=== PATIENT | female | born 1955 | race Two or more races ===

== ENCOUNTER 2024-05-01 08:23 | Emergency (ER) | payer OTHER ==
[~2024-05-01] VITALS: Ht 160 cm; Wt 92.3 kg
--- NOTE | 2024-05-01 08:39 | ED.PDOC ---
SOB-HPI HPI Comments A 68 YEAR OLD FEMALE PRESENTS TO THE ED WITH COMPLAINT OF COUGH. PATIENT STATES SHE HAS BEEN EXPERIENCING A COUGH, CONGESTION, LEFT EAR PAIN, SORE THROAT, AND CHEST TIGHTNESS FOR THE PAST 9 DAYS. PATIENT REPORTS HER SYMPTOMS ARE WORSE AT NIGHT. PATIENT DENIES FEVER, CHILLS, SHORTNESS OF BREATH, CHEST PAIN, ABDOMINAL PAIN, NAUSEA, VOMITING, HEADACHE, OR OTHER COMPLAINTS. NO OTHER SYMPTOMS OR MODIFYING FACTORS AT THIS TIME. PATIENT IS ALERT, ORIENTED X 4, AND HAS STEADY GAIT. Chief Complaint: Flu like Time Seen by MD: 08:31 Reviewed notes: Nurses Notes, Medications, Allergies Information Source: Patient Mode of Arrival: Ambulatory Severity: Moderate Timing: Days Duration: Since onset, Days Context: Spontaneous Onset PE Risk Factors: None History of: None Prehospital treatment: None Modifying Factors: Nothing Associated Signs and Symptoms: Cough, Nasal Congestion, Sore Throat If cough with SOB: Productive Past Medical History PAST MEDICAL HISTORY: DM, HTN Surgical History: Denies all surgeries SOLVENT PROCESS EXTRACTOR OPERATOR History: No Pertinent SOLVENT PROCESS EXTRACTOR OPERATOR History Family History Family History: Reviewed,noncontributory to illness Social History Smoker: Non-Smoker Alcohol: Denies ETOH Use Drugs: Denies Drug Use Lives In: Home Constitutional: denies: chills, diaphoresis, fatigue, fever, malaise, sweats, weakness, others EENTM: reports: ear pain, nose congestion, throat pain, throat swelling; denies: blurred vision, double vision, ear bleeding, ear discharge, ear drainage, ear ringing, eye pain, eye redness, hearing loss, mouth pain, mouth swelling, nasal discharge, nose bleeding, nose pain, photophobia, tearing, voice changes, others Respiratory: reports: cough, wheezing, others (CHEST TIGHTNESS); denies: hemoptysis, orthopnea, SOB at rest, shortness of breath, SOB with excertion, stridor Cardiovascular: denies: chest pain, dizzy spells, diaphoresis, Dyspnea on exertion, edema, irregular heart beat, left arm pain, lightheadedness, palpitations, PND, syncope, others Gastrointestinal: denies: abdomen distended, abdominal pain, blood streaked bowels, constipated, diarrhea, dysphagia, difficulty swallowing, hematemesis, melena, nausea, poor appetite, poor fluid intake, rectal bleeding, rectal pain, vomiting, others Genitourinary: denies: abnormal vagina bleeding, burning, dyspareunia, dysuria, flank pain, frequency, hematuria, incontinence, pain, , vagina discharge, urgency, others Neurological: denies: dizziness, fainting, headache, left sided numbness, left sided weakness, numbness, paresthesia, pre-existing deficit, right sided numbness, right sided weakness, seizure, speech problems, tingling, tremors, weakness, others Musculoskeletal: denies: back pain, gout, joint pain, joint swelling, muscle pain, muscle stiffness, neck pain, others Integumetry: denies: bruises, change in color, change in hair/nails, dryness, laceration, lesions, lumps, rash, wounds, others Allergic/Immunocompromised: denies: Difficulty Healing, Frequent Infections, Hives, Itching, others Hematologic/Lymphatic: denies: anemia, blood clots, easy bleeding, easy bruising, swollen glands, others Endocrine: denies: excessive hunger, excessive sweating, excessive thirst, excessive urination, flushing, intolerance to cold, intolerance to heat, unexplained weight gain, unexplained weight loss, others Psychiatric: denies: anxiety, bipolar disorder, depression, hopeless, panic disorder, schizophrenia, sleepless, suicidal, others All Other Systems: Reviewed and Negative Physical Exam General Appearance: No Apparent Distress, Normal HEENT: PERRL/EOMI, Pharyngeal Erythema (TONSILLAR SWELLING, NO EXUDATES. ), TM Abnormal (L) (ERYTHEMA AND DULL OF LEFT TM, NO DRAINAGE AND BLOOD CLOTS. ) Neck: Full Range of Motion, Non-Tender, Normal, Normal Inspection Respiratory: Chest Non-Tender, Expiration, No Accessory Muscle Use, No Respiratory Distress, Rhonchi, Wheezing (MILD WHEEZING) Cardiovascular: No Edema, No JVD, No Murmur, No Gallop, Normal Peripheral Pulses, Regular Rate/Rhythm Breast Exam: Deferred Gastrointestinal: No Organomegaly, Non Tender, No Pulsatile Mass, Normal Bowel Sounds, Soft Genitalia: Deferred Pelvic: Deferred Rectal: Deferred Extremities: No calf tenderness, Normal capillary refill, Normal inspection, Normal range of motion, Non-tender, No pedal edema Musculoskeletal : Apperance: Normal Neurologic: Alert, floor clerk II-XII nml as Tested, No Motor Deficits, Normal Affect, Normal Mood, No Sensory Deficits Cerebellar Function: Normal Reflexes: Normal Skin: Dry, Normal Color, Warm Peripheral Pulses: 2+ carotid (R), 2+ carotid (L) Lymphatic: No Adenopathy Was a procedure done? Was a procedure done?: No Differential Dx Differential Diagnosis: Bronchitis, Pneumonia, Sinusitis, Allergic Rhinitis, Otitis Media, Pharyngitis, URI X-Ray, Labs, Meds, VS Vital Signs Date Time Temp Pulse Resp B/P (MAP) Pulse Ox O2 Delivery O2 Flow Rate FiO2 05/01/24 08:58 20 96 Room Air* 0 21 05/01/24 08:52 95 22 96 Room Air 05/01/24 08:52 98.2 95 22 128/86 (100) 96 98.2 05/01/24 08:33 98.2 97 22 185/111 (135) 98 Current Medications Medications (Trade) Dose Ordered Sig/Ellis Route Start Time Stop Time Status Last Admin Ceftriaxone Sodium (Rocephin) 1,000 mg ONCE ONCE IM 05/01/24 08:45 05/01/24 08:46 DC 05/01/24 09:21 Methylprednisolone Sodium Succinate (Solu Medrol) 125 mg ONCE ONCE IM 05/01/24 08:45 05/01/24 08:46 DC 05/01/24 09:21 Albuterol (Ventolin Medneb) 2.5 mg ONCE ONCE NEB 05/01/24 08:45 05/01/24 08:46 DC 05/01/24 08:58 Ipratropium [place] (Atrovent Medneb) 0.5 mg ONCE ONCE NEB 05/01/24 08:45 05/01/24 08:46 DC 05/01/24 08:58 EXAM: XR Chest, 2 Views CLINICAL INDICATION: COUGH TECHNIQUE: Frontal and lateral views of the chest. COMPARISON: None FINDINGS: LUNGS AND PLEURAL SPACES: Unremarkable. No consolidation. No pneumothorax. HEART: Unremarkable. No cardiomegaly. MEDIASTINUM: Unremarkable. Normal mediastinal contour. BONES/JOINTS: Unremarkable. No acute fracture. OTHER FINDINGS: . . . IMPRESSION: No acute cardiopulmonary process. HS:Y ATED BY: AMISH EDWARDS MD DICTATED DATE/TIME: 05/01/24919 SIGNED BY: AMISH EDWARDS MD SIGNED DATE/TIME: 11/23/24 0920 CC: X-Ray, Labs, Meds, VS Comment TREATMENT: ROCEPHIN 1 G IM, SOLU-MEDROL 125 MG IM, DUONEB 3 MG INHL BASED ON MY CLINICAL EXAM FINDINGS, THE FACT THAT THE PATIENT'S CHEST X-RAY IS NORMAL PER THE RADIOLOGIST'S INTERPRETATION, AND SINCE THE PATIENT REPORTED FEELING MUCH BETTER AFTER RECEIVING TREATMENT, I HAVE DETERMINED THE PATIENT IS SAFE TO DISCHARGE AT THIS TIME. PATIENT WILL BE PRESCRIBED AZITHROMYCIN, AN ALBUTEROL INHALER, AND PHENERGAN DM AND I HAVE INSTRUCTED HER TO FOLLOW UP WITH HER PCP IN 1-2 DAYS. Images Reviewed?: Images reviewed and evaluated by me Time of 1ST Reevaluation: 09:40 Reevaluation 1ST: Improved Patient Education/Counseling: Diagnosis, Treatment, Need For Follow Up Family Education/Counseling: Diagnosis, Treatment, Need For Follow Up Medical Screening: No EMC Exist At This Time Departure 1 Departure Time of Disposition: 09:40 Impression: Primary Impression: Acute bronchitis with bronchospasm Additional Impression: Acute tonsillitis Qualified Codes: J03.90 - Acute tonsillitis, unspecified Disposition: HOME / SELF CARE / HOMELESS Condition: Stable Additional Instructions: FOLLOW-UP WITH PCP IN 1 TO 2 DAYS. TAKE MEDICATIONS PRESCRIBED. RETURN TO ED FOR ANY NEW OR WORSENING SYMPTOMS. e-Prescriptions Albuterol Sulfate (Albuterol Sulfate Hfa) 108 Mcg/Act Aer 108 MCG IN TID, #120 AER Prov: DINORA COLE 05/01/24 Promethazine-Dm (Promethazine Dm 6.25-15 mg/5Ml) 1 Mikki Mikki 5 ML PO TID, #180 ML Prov: DINORA COLE 05/01/24 Azithromycin (Azithromycin) 500 Mg Tab 1 TAB PO DAILY, #5 TAB Prov: DINORA COLE 05/01/24 Discharged With: Self Critical Care Note Critical Care Time?: No Stability Stability form required: No Heart Score Heart Score: Heart Score Response (Comments) Value History N/A 0 EKG N/A 0 Age N/A 0 Risk Factors N/A 0 Troponin N/A 0 Total 0 I personally scribed for DINORA COLE ([email or web address]) on 05/01/24 at 09:21. Electronically submitted by Jose Alberto Hoffman ([email or web address]). I personally scribed for DINORA COLE ([email or web address]) on 05/01/24 at 09:23. Electronically submitted by Jose Alberto Hoffman ([email or web address]). DINORA COLE May 01, 2024 08:39
[2024-05-01 08:52] VITALS: BP 128/86; PULSE 95; TEMP 98.2
[2024-05-01 08:58] VITALS: RESP 20; O2SAT 96
[2024-05-01] MEDS: IPRATROPIUM BROM 0.5 MG/2.5ML INH SOL NEB ONE (08:58)
[2024-05-01] MEDS: ALBUTEROL SULF 2.5 MG/0.5ML(0.5%) NEB SOLN NEB ONE (08:58)
[2024-05-01] MEDS: cefTRIAXone SOD 1,000 MG VL IM ONE (09:21)
[2024-05-01] MEDS: methylPREDNISolone SOD SUCC 125 MG/2 ML VL IM ONE (09:21)
--- NOTE | 2024-05-01 09:22 | DVH ---
EXAM: XR Chest, 2 Views CLINICAL INDICATION: COUGH TECHNIQUE: Frontal and lateral views of the chest. COMPARISON: None FINDINGS: LUNGS AND PLEURAL SPACES: Unremarkable. No consolidation. No pneumothorax. HEART: Unremarkable. No cardiomegaly. MEDIASTINUM: Unremarkable. Normal mediastinal contour. BONES/JOINTS: Unremarkable. No acute fracture. OTHER FINDINGS: . . . IMPRESSION: No acute cardiopulmonary process. HS:Y
[2024-05-01] MEDS ORDERED: PROM1SOL4 PO (09:23)
[2024-05-01] MEDS ORDERED: ALBU108A5 IN (09:23)
[2024-05-01] MEDS ORDERED: AZIT500T66 PO (09:23)
== END 2024-05-01 10:01 | disposition home or self-care (01) ==
LOC: ER 08:23
DX: J20.9 Acute bronchitis, unspecified (principal); J03.90 Acute tonsillitis, unspecified; E11.9 Type 2 diabetes mellitus without complications; I10 Essential (primary) hypertension
CPT/HCPCS: 71046; 94640; 96372; 99284; J0696; J2919

== ENCOUNTER 2024-07-03 06:40 | Inpatient (IN) | payer OTHER ==
[~2024-07-03] VITALS: Ht 160 cm; Wt 92.5 kg
[~2024-07-03 06:40] MED LIST: ALBU108A5 IN; AZIT500T66 PO; PROM1SOL4 PO
--- NOTE | 2024-07-03 07:10 | ED.PDOC ---
GI ASSESSMENT HPI Comments 68-year-old female brought in by presents with a chief complaint of diarrhea, nausea, vomiting times onset last night. Beam consistently using the restroom to go diarrhea since late last night and has yet to stop. Patient states that she is unable to keep solids or liquids down without having emesis episode. Patient denies any history of C. Diff in the past. Patient is tachycardic upon arrival with a rate of 125. Chief Complaint: Nausea/Vomiting Time Seen by MD: 07:06 Reviewed Notes: Medications, Allergies Home Meds Active Scripts Albuterol Sulfate (Albuterol Sulfate Hfa) 108 Mcg/Act Aer, 108 MCG IN TID, #120 AER Prov:DINORA COLE 05/01/24 Promethazine-Dm (Promethazine Dm 6.25-15 mg/5Ml) 1 Mikki Mikki, 5 ML PO TID, #180 ML Prov:DINORA COLE 05/01/24 Azithromycin (Azithromycin) 500 Mg Tab, 1 TAB PO DAILY, #5 TAB Prov:DINORA COLE 05/01/24 Information Source: Patient Mode of Arrival: EMS Timing: Hours Duration: Since onset Prehospital treatment: None Quality: Aching Vomitus: Food Particles Stool: Loose, Watery Severity: Moderate Recent: None Pain Location: Diffuse Past Medical History PAST MEDICAL HISTORY: DM, HTN Surgical History: Denies all surgeries FIRE COORDINATOR History: No Pertinent FIRE COORDINATOR History Family History Family History: Reviewed,noncontributory to illness Social History Smoker: Non-Smoker Alcohol: Denies ETOH Use Drugs: Denies Drug Use Lives In: Home Constitutional: denies: chills, diaphoresis, fatigue, fever, malaise, sweats, weakness, others EENTM: denies: blurred vision, double vision, ear bleeding, ear discharge, ear drainage, ear pain, ear ringing, eye pain, eye redness, hearing loss, mouth pain, mouth swelling, nasal discharge, nose bleeding, nose congestion, nose pain, photophobia, tearing, throat pain, throat swelling, voice changes, others Respiratory: denies: cough, hemoptysis, orthopnea, SOB at rest, shortness of breath, SOB with excertion, stridor, wheezing, others Cardiovascular: denies: chest pain, dizzy spells, diaphoresis, Dyspnea on exertion, edema, irregular heart beat, left arm pain, lightheadedness, palpitations, PND, syncope, others Gastrointestinal: reports: diarrhea, nausea, vomiting; denies: abdomen distended, abdominal pain, blood streaked bowels, constipated, dysphagia, diffi culty swallowing, hematemesis, melena, poor appetite, poor fluid intake, rectal bleeding, rectal pain, others Genitourinary: denies: abnormal vagina bleeding, burning, dyspareunia, dysuria, flank pain, frequency, hematuria, incontinence, pain, , vagina discharge, urgency, others Neurological: denies: dizziness, fainting, headache, left sided numbness, left sided weakness, numbness, paresthesia, pre-existing deficit, right sided numbness, right sided weakness, seizure, speech problems, tingling, tremors, weakness, others Musculoskeletal: denies: back pain, gout, joint pain, joint swelling, muscle pain, muscle stiffness, neck pain, others Integumetry: denies: bruises, change in color, change in hair/nails, dryness, laceration, lesions, lumps, rash, wounds, others Allergic/Immunocompromised: denies: Difficulty Healing, Frequent Infections, Hives, Itching, others Hematologic/Lymphatic: denies: anemia, blood clots, easy bleeding, easy bruising, swollen glands, others Endocrine: denies: excessive hunger, excessive sweating, excessive thirst, excessive urination, flushing, intolerance to cold, intolerance to heat, unexplained weight gain, unexplained weight loss, others Psychiatric: denies: anxiety, bipolar disorder, depression, hopeless, panic disorder, schizophrenia, sleepless, suicidal, others All Other Systems: Reviewed and Negative Physical Exam General Appearance: Moderate Distress, Obese HEENT: Normal ENT Inspection, Pharynx Normal, TMs Normal Neck: Full Range of Motion, Non-Tender, Normal, Normal Inspection Respiratory: Chest Non-Tender, Lungs Clear, No Accessory Muscle Use, No Respiratory Distress, Normal Breath Sounds Cardiovascular: No Edema, No JVD, No Murmur, No Gallop, Normal Peripheral Pulses, Tachycardia Breast Exam: Deferred Gastrointestinal: No Organomegaly, Non Tender, No Pulsatile Mass, Normal Bowel Sounds, Soft Genitalia: Deferred Pelvic: Deferred Rectal: Deferred Extremities: No calf tenderness, Normal capillary refill, Normal inspection, Normal range of motion, Non-tender, No pedal edema Musculoskeletal : Apperance: Normal Neurologic: Alert, employment law attorney II-XII nml as Tested, No Motor Deficits, Normal Affect, Normal Mood, No Sensory Deficits Cerebellar Function: Normal Reflexes: Normal Skin: Dry, Normal Color, Warm Lymphatic: No Adenopathy Was a procedure done? Was a procedure done?: No GI differential Dx Differential Diagnosis: Gastroenteritis, Dehydration, Hypovolemia Other Differential Diagnosis C diff, electrolyte disturbance, dehydration hypovolemia, gastroenteritis X-Ray, Labs, Meds, VS Vital Signs Date Time Temp Pulse Resp B/P (MAP) Pulse Ox O2 Delivery O2 Flow Rate FiO2 07/03/24 08:47 98.5 103 16 119/85 (96) 96 98.5 07/03/24 08:01 Room Air* 0 21 07/03/24 06:48 98.6 124 18 167/109 (128) 97 Lab Test 07/03/24 08:12 07/03/24 07:43 Range/Units Urine Color Yellow Yellow Urine Clarity Clear Clear Urine pH 5.5 5.0-9.0 Urine Specific [place] 1.027 1.001-1.035 Urine Protein Trace H Negative Urine Ketones Negative Negative Urine Blood Negative Negative /uL Urine Nitrite Negative Negative Urine Bilirubin Negative Negative Urine Urobilinogen Normal Negative mg/dL Urine Leukocyte Esterase Negative Negative /uL Urine RBC 1 0 - 4 /hpf Urine Microscopic WBC 1 0-5 /HPF Urine Squamous Epithelial Cells Few <5 /hpf Urine Bacteria None seen None Seen /hpf Urine Mucus Few None Seen Urine Glucose 1+ H Normal mg/dL White Blood Count 10.1 4.4-10.8 10^3/uL Red Blood Count 5.98 H 4.0-5.20 10^6/uL Hemoglobin 13.7 12.2-16.2 g/dL Hematocrit 42.4 36.0-46.0 % Mean Corpuscular Volume 70.9 L 80.0-100.0 fL Mean Corpuscular Hemoglobin 22.9 L 28.0-32.0 pg Mean Corpuscular Hemoglobin Concent 32.2 32.0-36.0 g/dL Red Cell Distribution Width 16.5 H 11.8-14.3 % Platelet Count 255 140-450 10^3/uL Mean Platelet Volume 10.5 6.9-10.8 fL Neutrophils (%) (Auto) 88.2 H 37.0-80.0 % Lymphocytes (%) (Auto) 6.3 L 10.0-50.0 % Monocytes (%) (Auto) 5.0 0.0-12.0 % Eosinophils (%) (Auto) 0.1 0.0-7.0 % Basophils (%) (Auto) 0.4 0.0-2.0 % Neutrophils # (Auto) 8.9 H 1.6-8.6 10 ^3/uL Lymphocytes # (Auto) 0.6 0.4-5.4 10 ^3/uL Monocytes # (Auto) 0.5 0-1.3 10 ^3/uL Eosinophils # (Auto) 0 0-0.8 10 ^3/uL Basophils # (Auto) 0 0-0.2 10 ^3/uL Nucleated Red Blood Cells 0.1 % Sodium Level 137 136-145 mmol/L Potassium Level 3.6 3.5-5.1 mmol/L Chloride Level 104 98-107 mmol/L Carbon Dioxide Level 22 20-31 mmol/L Anion Gap 11 5-15 Blood Urea Nitrogen 15 9-23 mg/dL Creatinine 0.90 0.550-1.02 mg/dL Glomerular Filtration Rate Calc 69 >90 mL/min BUN/Creatinine Ratio 16.7 10.0-20.0 Serum Glucose 215 H 74-106 mg/dL Calcium Level 9.7 8.7-10.4 mg/dL Total Bilirubin 0.6 0.2-1.0 mg/dL Aspartate Amino Transferase (AST) 24 13-40 U/L Alanine Aminotransferase (ALT) 42 H 7-40 U/L Alkaline Phosphatase 107 46-116 U/L Total Protein 7.6 5.7-8.2 g/dL Albumin 5.1 H 3.2-4.8 g/dL Current Medications Medications (Trade) Dose Ordered Sig/Ellis Route Start Time Stop Time Status Last Admin Sodium Chloride 1,000 ml @ 1,000 mls/hr Q1H ONCE IV 07/03/24 07:15 07/03/24 08:14 DC 07/03/24 07:53 Ondansetron HCl (Zofran) 4 mg ONCE ONCE IV 07/03/24 07:15 07/03/24 07:16 DC 07/03/24 07:53 68-year-old female presents here with vomiting and diarrhea. She states she has been having profuse watery diarrhea. She was found to be tachycardic in the 130s upon her initial arrival. I have written for blood work IV fluids. And some nausea medicine. CBC has returned and is within normal limits. CMP is also within normal limits except for mildly high glucose at 215. Although her heart rate has improved with IV fluids, she continues to have profuse watery diarrhea and unable to tolerate any p.o.. She does not live with any family I a m concerned that she will become extremely dehydrated at home. At this time hospitalist team has been consulted for admission. I have ordered a CT scan of the abdomen pelvis and additional medications for her. Time of 1ST Reevaluation: 07:36 Reevaluation 1ST: Unchanged Time of 2ND Reevaluation: 10:00 Reevaluation 2ND: Unchanged Patient Education/Counseling: Diagnosis, Treatment, Prognosis Family Education/Counseling: Diagnosis, Treatment, Prognosis Departure 1 Departure Time of Disposition: 10:15 Impression: Primary Impression: Gastroenteritis Additional Impression: Dehydration Disposition: ADMITTED INPATIENT Admit to: [facility] Condition: Guarded Discharged With: Self Critical Care Note Critical Care Time?: Yes Critical care comment: 34 minutes critical care time. Given patient's high heart rate, I was called triage to evaluate the patient. Patient was extremely dehydrated. Patient was given IV fluids with improvement. Time spent speaking to nursing staff, patient evaluating the patient, multiple re-evaluations, reviewing lab results, speaking to hospitalist team. Stability Stability form required: No Heart Score Heart Score: Heart Score Response (Comments) Value History N/A 0 EKG N/A 0 Age N/A 0 Risk Factors N/A 0 Troponin N/A 0 Total 0 I personally scribed for SANDEEP BRENNER MD ([email or web address]) on 07/03/24 at 07:10. Electronically submitted by Irving Moore ([email or web address]). I personally scribed for SANDEEP BRENNER MD ([email or web address]) on 07/03/24 at 07:20. Electronically submitted by Irving Moore ([email or web address]). SANDEEP BRENNER MD Jul 03, 2024 07:10
[2024-07-03] MEDS: SODIUM CHLORIDE 0.9% 1,000 ML IV ONE (07:53)
[2024-07-03] MEDS: ONDANSETRON HCL 4 MG/2 ML VIAL IV ONE ×2 (07:53→11:11)
[2024-07-03 08:19] LABS: Basophils # (auto) 0 10 ^3/uL (0-0.2); Eosinophils # (auto) 0 10 ^3/uL (0-0.8); Hemoglobin 13.7 g/dL (12.2-16.2); Mean Corpuscular Hemoglobin 22.9 pg (28.0-32.0); Mean Corpuscular Hgb Conc. 32.2 g/dL (32.0-36.0); Monocytes # (auto) 0.5 10 ^3/uL (0-1.3); Red Cell Distribution Width 16.5 % (11.8-14.3)
[2024-07-03 08:21] LABS: Basophils % (auto) 0.4 % (0.0-2.0); Eosinophils % (auto) 0.1 % (0.0-7.0); Hematocrit 42.4 % (36.0-46.0); Lymphocytes # (auto) 0.6 10 ^3/uL (0.4-5.4); Lymphocytes % (auto) 6.3 % (10.0-50.0); Mean Corpuscular Volume 70.9 fL (80.0-100.0); Neutrophils # (auto) 8.9 10 ^3/uL (1.6-8.6); Neutrophils % (auto) 88.2 % (37.0-80.0); Nucleated Red Blood Cells % 0.1 %; Platelet Count (auto) 255 10^3/uL (140-450); Red Blood Cells 5.98 10^6/uL (4.0-5.20); White Blood Cell 10.1 10^3/uL (4.4-10.8)
[2024-07-03 08:32] LABS: Alkaline Phosphatase 107 U/L (46-116); Anion Gap 11 (5-15); Aspartate Aminotransferase 24 U/L (13-40); BUN/Creatinine Ratio 16.7 (10.0-20.0); Bilirubin, Total 0.6 mg/dL (0.2-1.0); Blood Urea Nitrogen 15 mg/dL (9-23); Calcium 9.7 mg/dL (8.7-10.4); Carbon Dioxide 22 mmol/L (20-31); Chloride 104 mmol/L (98-107); Potassium 3.6 mmol/L (3.5-5.1); Sodium 137 mmol/L (136-145); Total Protein 7.6 g/dL (5.7-8.2)
[2024-07-03 08:36] LABS: Alanine Aminotransferase 42 U/L (7-40); Albumin 5.1 g/dL (3.2-4.8); Glucose 215 mg/dL (74-106)
[2024-07-03 09:40] LABS: Urine Bacteria None Seen /hpf (None Seen)
[2024-07-03 09:58] LABS: Urine Blood Negative /uL (Negative); Urine Clarity Clear (Clear); Urine Color Yellow (Yellow); Urine Mucus FEW (None Seen); Urine Protein, UAD TRACE (Negative); Urine Specific Gravity 1.027 (1.001-1.035); Urine Squamous Epithelial Cell FEW /hpf (<5); Urine Urobilinogen Normal (Negative); Urine WBC 1 /HPF (0-5); Urine pH 5.5 (5.0-9.0)
[2024-07-03] MEDS: MORPHINE SULFATE INJ 2 MG/ml SYRG IV ONE (11:11)
[2024-07-03] MEDS ORDERED: DEXTROSE (50%) 50ML SYRG IV PRN ×2 (11:30→12:45)
--- NOTE | 2024-07-03 11:44 | DVH ---
Exam: CT CT AB PEL WO CON-NO ORAL OR IV History: abd pain Comparison Study: None Technique: Multidetector spiral CT of the abdomen was performed from lung bases to pubic symphysis. Imaging was performed without IV contrast. Axial, coronal and sagittal multiplanar reformats were ob tained from the axial data set by the technologist. Radiation dose : 1. Abdomen/Pelvis: CTDIvol 23 mGy, DLP 1149.95 mGy*cm. Findings: Evaluation of solid organs is limited due to lack of intravenous contrast use. Lung Bases: No acute or significant lung base finding. Normal heart size. No pleural or pericardial effusion. Liver: At the infiltration of the liver moderate and degree. Gallbladder and biliary Tree: Unremarkable Spleen: Unremarkable Pancreas: The pancreas is grossly normal in appearance. Adrenal Glands: Unremarkable Kidneys: Kidneys are grossly normal without calculi or hydronephrosis. Bladder: Grossly unremarkable for degree of distention. Bowel: The stomach is grossly normal in appearance. Small bowel and colon are normal in caliber and d istribution. Normal appendix. Moderate sigmoid diverticulosis without diverticulitis. Multiple non d istended fluid filled loops of small bowel. Ascites: Absent Lymphadenopathy: No mesenteric, retroperitoneal or periportal lymphadenopathy. Abdominal wall and Mesentery: Unremarkable. Vasculature: The visualized abdominal aorta is normal in size and caliber. Evaluation of abdominal a nd pelvic vessels is limited due to lack of intravenous contrast. Pelvic Organs: Unremarkable Musculoskeletal: No aggressive focal bony lesions, acute fractures or dislocation. IMPRESSION: 1. No acute abdominal or pelvic findings. 2. Moderate fatty infiltration of the liver. 3. Normal appendix 4. Multiple non distended fluid filled loops of small bowel without bowel obstruction 5. Moderate sigmoid and descending colonic diverticulosis Radiation optimization: All CT scans at this facility use at least one of these dose optimization esa hniques: Automated exposure control mA and/or kV adjustment per patient size (includes targeted exams where dose is matched to clinical indication) or iterative reconstruction.
[2024-07-03] MEDS ORDERED: ACETAMINOPHEN 325 MG TAB PO PRN (12:45)
--- NOTE | 2024-07-03 12:47 | DVHHP2 ---
History of Present Illness Reason for Visit: Abdominal pain History of Present Illness Arlene Sheridan is a 68-year-old female with past medical history of hypertension, diabetes, and who presents to the ED with abdominal pain, nausea, vomiting, diarrhea, and headache x1 day. Patient denies any recent ingestion of spoiled food or recent sick contacts or recent illnesses. Patient reports the pain as pressure-like constant and 5/10. Patient denies any fevers, chills, lightheadedness, weakness, dizziness, chest pain, shortness of breath, or urinary symptoms. Cardiovascular: HTN Endocrine: Diabetes Past Surgical History: Family History: None Smoke: No ALCOHOL: none Drugs: None Lives: Alone Domestic Violence: Neg Review of Systems Constitutional: Yes: Other (Headache); No: Fever, Chills, Sweats, Weakness, Malaise Eyes: No: Pain, Vision change, Conjunctivae inflammation, Eyelid inflammation, Other, Redness ENT: No: Ear pain, Ear discharge, Nose pain, Nose discharge, Nose congestion, Mouth pain, Mouth swelling, Throat pain, Throat swelling, Other Respiratory: No: Cough, Dry, Shortness of breath, SOB with excertion, Wheezing, Hemoptysis, Pleuritic Pain, Sputum, Wheezing, Other Cardiovascular: No: Chest Pain, Palpitations, Orthopnea, Paroxysmal Noc. Dyspnea, Edema, Lt Headedness, Other Gastrointestinal: Nausea, Vomiting, Abdominal Pain, Diarrhea; No: Constipation, Melena, Hematochezia, Other Genitourinary: No Dysuria, No Frequency, No Incontinence, No Hematuria, No Retention, No Other Musculoskeletal: No: other, neck pain, shoulder pain, arm pain, back pain, hand pain, leg pain, foot pain Skin: No: Rash, Lesions, Jaundice, Bruising, Other Neurological: No: Weakness, Numbness, Incoordination, Change in speech, Confusion, Seizures, Other Allergies: Coded Allergies: NO KNOWN ALLERGIES (Unverified , 07/03/24) Medications Current Medications Medications Dose Ordered Sig/Ellis Route Start Time Stop Time Status Last Admin Dose Admin Diagnostic Test (Pha) 1 strip ACHS 07/03/24 11:30 Insulin Human Regular ACHS SC 07/03/24 11:30 Dextrose 50 ml UD PRN IV 07/03/24 11:30 Exam Vital Signs Vital Signs Date Time Temp Pulse Resp B/P (MAP) Pulse Ox O2 Delivery O2 Flow Rate FiO2 07/03/24 11:11 93 16 146/87 07/03/24 11:05 96 07/03/24 08:47 98.5 98.5 07/03/24 08:01 Room Air* 0 21 General Appearance: Alert, Oriented X3, Cooperative, No acute distress HEENT: Atraumatic, PERRLA Respiratory: Clear to auscultation, Normal air movement Cardiovascular: Normal S1, Normal S2, No murmurs Abdominal: Soft Extremities: No clubbing, No cyanosis, No edema, Normal pulses, No tenderness/swelling Skin: No rashes, No breakdown, No significant lesion Neuro: Normal gait, Normal speech, Strength at 5/5 X4 ext, Normal tone, Sensation intact Psych/Mental Status: Mental status NL, Mood NL Labs/Xrays Labs Test 07/03/24 08:12 07/03/24 07:43 Range/Units Urine Color Yellow Yellow Urine Clarity Clear Clear Urine pH 5.5 5.0-9.0 Urine Specific [place] 1.027 1.001-1.035 Urine Protein Trace H Negative Urine Ketones Negative Negative Urine Blood Negative Negative /uL Urine Nitrite Negative Negative Urine Bilirubin Negative Negative Urine Urobilinogen Normal Negative mg/dL Urine Leukocyte Esterase Negative Negative /uL Urine RBC 1 0 - 4 /hpf Urine Microscopic WBC 1 0-5 /HPF Urine Squamous Epithelial Cells Few <5 /hpf Urine Bacteria None seen None Seen /hpf Urine Mucus Few None Seen Urine Glucose 1+ H Normal mg/dL White Blood Count 10.1 4.4-10.8 10^3/uL Red Blood Count 5.98 H 4.0-5.20 10^6/uL Hemoglobin 13.7 12.2-16.2 g/dL Hematocrit 42.4 36.0-46.0 % Mean Corpuscular Volume 70.9 L 80.0-100.0 fL Mean Corpuscular Hemoglobin 22.9 L 28.0-32.0 pg Mean Corpuscular Hemoglobin Concent 32.2 32.0-36.0 g/dL Red Cell Distribution Width 16.5 H 11.8-14.3 % Platelet Count 255 140-450 10^3/uL Mean Platelet Volume 10.5 6.9-10.8 fL Neutrophils (%) (Auto) 88.2 H 37.0-80.0 % Lymphocytes (%) (Auto) 6.3 L 10.0-50.0 % Monocytes (%) (Auto) 5.0 0.0-12.0 % Eosinophils (%) (Auto) 0.1 0.0-7.0 % Basophils (%) (Auto) 0.4 0.0-2.0 % Neutrophils # (Auto) 8.9 H 1.6-8.6 10 ^3/uL Lymphocytes # (Auto) 0.6 0.4-5.4 10 ^3/uL Monocytes # (Auto) 0.5 0-1.3 10 ^3/uL Eosinophils # (Auto) 0 0-0.8 10 ^3/uL Basophils # (Auto) 0 0-0.2 10 ^3/uL Nucleated Red Blood Cells 0.1 % Sodium Level 137 136-145 mmol/L Potassium Level 3.6 3.5-5.1 mmol/L Chloride Level 104 98-107 mmol/L Carbon Dioxide Level 22 20-31 mmol/L Anion Gap 11 5-15 Blood Urea Nitrogen 15 9-23 mg/dL Creatinine 0.90 0.550-1.02 mg/dL Glomerular Filtration Rate Calc 69 >90 mL/min BUN/Creatinine Ratio 16.7 10.0-20.0 Serum Glucose 215 H 74-106 mg/dL Hemoglobin A1c 8.0 H <5.7 % A1C Calcium Level 9.7 8.7-10.4 mg/dL Total Bilirubin 0.6 0.2-1.0 mg/dL Aspartate Amino Transferase (AST) 24 13-40 U/L Alanine Aminotransferase (ALT) 42 H 7-40 U/L Alkaline Phosphatase 107 46-116 U/L Total Protein 7.6 5.7-8.2 g/dL Albumin 5.1 H 3.2-4.8 g/dL Exam: CT CT AB PEL WO CON-NO ORAL OR IV History: abd pain Comparison Study: None Technique: Multidetector spiral CT of the abdomen was performed from lung bases to pubic symphysis. Imaging was performed without IV contrast. Axial, coronal and sagittal multiplanar reformats were obtained from the axial data set by the technologist. Radiation dose : 1. Abdomen/Pelvis: CTDIvol 23 mGy, DLP 1149.95 mGy*cm. Findings: Evaluation of solid organs is limited due to lack of intravenous contrast use. Lung Bases: No acute or significant lung base finding. Normal heart size. No pleural or pericardial effusion. Liver: At the infiltration of the liver moderate and degree. Gallbladder and biliary Tree: Unremarkable Spleen: Unremarkable Pancreas: The pancreas is grossly normal in appearance. Adrenal Glands: Unremarkable Kidneys: Kidneys are grossly normal without calculi or hydronephrosis. Bladder: Grossly unremarkable for degree of distention. Bowel: The stomach is grossly normal in appearance. Small bowel and colon are normal in caliber and distribution. Normal appendix. Moderate sigmoid diverticulosis without diverticulitis. Multiple non distended fluid filled loops of small bowel. Ascites: Absent Lymphadenopathy: No mesenteric, retroperitoneal or periportal lymphadenopathy. Abdominal wall and Mesentery: Unremarkable. Vasculature: The visualized abdominal aorta is normal in size and caliber. Evaluation of abdominal and pelvic vessels is limited due to lack of intravenous contrast. Pelvic Organs: Unremarkable Musculoskeletal: No aggressive focal bony lesions, acute fractures or dislocation. IMPRESSION: 1. No acute abdominal or pelvic findings. 2. Moderate fatty infiltration of the liver. 3. Normal appendix 4. Multiple non distended fluid filled loops of small bowel without bowel obstruction 5. Moderate sigmoid and descending colonic diverticulosis Assessment/Plan Assessment/Plan Assessment/Plan: Intractable abdominal pain likely due to gastroenteritis Glucosuria Labs C diff stool sample UA Antiemetics Pain management NS [address] abdomen and pelvis EKG IV antibiotics-ceftriaxone A.m. labs Diabetes type 2 uncontrolled Hemoglobin A1c ISS and Accu-Cheks Chronic hypertension Continue home medication FEN/PPX Diet Hep-Lock DVT prophylaxis not indicated patient ambulating PUD prophylaxis-Protonix Admit to med surg Home medications reconciled Discussed plan of care with patient and nurse Plan discussed with: Patient My Orders Orders - ANGELITO FU Procedure Category Date Status Time Hemoglobin A1c LAB 07/03/24 In Process 11:20 Glucose Blood PHA 07/03/24 In Process (Accu-Chek Comfort 11:30 Insulin R (Human) PHA 07/03/24 In Process (Insulin R) 11:30 Dextrose 50% Syringe PHA 07/03/24 In Process 11:30 Date of Service: Jul 03, 2024 Billing Provider: ANGELITO FU Common Visit Codes: [id number] INP/OBS CARE (HIGH) ANGELITO FU Jul 03, 2024 12:47
[2024-07-03] MEDS ORDERED: LOSA-534 PO (12:48)
[2024-07-03] MEDS: InsuLIN REG 1unit/0.01ml Soln (100units/ml) SC SCH ×2 (12:51→17:24)
[2024-07-03] MEDS: ACCU-CHEK COMFORT CURVE STRIP VI SCH ×2 (12:54→17:20)
[2024-07-03] MEDS: cefTRIAXone 1GM/50ML D5W 50 ML IV ONE (13:28)
[2024-07-03 17:00] VITALS: PULSE 92; RESP 18; O2SAT 97
[2024-07-03] MEDS: MORPHINE SULFATE INJ 2 MG/ml SYRG IV PRN (20:54)
[2024-07-03] MEDS: ONDANSETRON HCL 4 MG/2 ML VIAL IV PRN (20:55)
[2024-07-04] VITALS (7 sets, daily range): BP systolic 116–138; BP diastolic 61–87; PULSE 77–99; RESP 19–20; TEMP 97.6–99.3; O2SAT 95–100
[2024-07-04 06:51] LABS: Basophils # (auto) 0 10 ^3/uL (0-0.2); Eosinophils # (auto) 0 10 ^3/uL (0-0.8); Hemoglobin 12.6 g/dL (12.2-16.2); Lymphocytes # (auto) 1.9 10 ^3/uL (0.4-5.4); Mean Corpuscular Hemoglobin 22.6 pg (28.0-32.0); Monocytes # (auto) 0.9 10 ^3/uL (0-1.3); Monocytes % (auto) 12.3 % (0.0-12.0)
[2024-07-04 06:54] LABS: Basophils % (auto) 0.2 % (0.0-2.0); Eosinophils % (auto) 0.2 % (0.0-7.0); Hematocrit 39.7 % (36.0-46.0); Lymphocytes % (auto) 26.4 % (10.0-50.0); Mean Corpuscular Hgb Conc. 31.8 g/dL (32.0-36.0); Mean Corpuscular Volume 71.2 fL (80.0-100.0); Neutrophils # (auto) 4.4 10 ^3/uL (1.6-8.6); Neutrophils % (auto) 60.9 % (37.0-80.0); Platelet Count (auto) 224 10^3/uL (140-450); Red Blood Cells 5.58 10^6/uL (4.0-5.20); Red Cell Distribution Width 16.7 % (11.8-14.3); White Blood Cell 7.2 10^3/uL (4.4-10.8)
[2024-07-04 07:05] LABS: Albumin 4.5 g/dL (3.2-4.8); Alkaline Phosphatase 90 U/L (46-116); Anion Gap 8 (5-15); Aspartate Aminotransferase 29 U/L (13-40); Blood Urea Nitrogen 18 mg/dL (9-23); Calcium 9.1 mg/dL (8.7-10.4); Carbon Dioxide 24 mmol/L (20-31); Chloride 107 mmol/L (98-107); Potassium 3.5 mmol/L (3.5-5.1); Sodium 139 mmol/L (136-145)
[2024-07-04 07:06] LABS: Total Protein 6.6 g/dL (5.7-8.2)
[2024-07-04 07:08] LABS: Alanine Aminotransferase 40 U/L (7-40); Glucose 134 mg/dL (74-106)
[2024-07-04 07:11] LABS: Bilirubin, Total 0.4 mg/dL (0.2-1.0)
[2024-07-04] MEDS: PANTOPRAZOLE 40 MG/10 ML VIAL INJ IV SCH (08:49)
[2024-07-04] MEDS: cefTRIAXone 1GM/50ML D5W 50 ML IV SCH (08:49)
--- NOTE | 2024-07-04 14:30 | DVHPN2 ---
Reviewed: Care Plan Changes from previous H/P or p: No Changes General: Per HPI Eyes: No Pain, No Vision change, No Conjunctivae inflammation, No Eyelid inflammation, No Other, No Redness ENT: No Ear pain, No Ear discharge, No Nose pain, No Nose discharge, No Nose congestion, No Mouth pain, No Mouth swelling, No Throat pain, No Throat swelling, No Other Cardiovascular: No Chest Pain, No Palpitations, No Orthopnea, No Paroxysmal Noc. Dyspnea, No Edema, No Lt Headedness, No Other Respiratory: No Cough, No Dry, No Shortness of breath, No SOB with excertion, No Wheezing, No Hemoptysis, No Pleuritic Pain, No Sputum, No Other Gastrointestinal: Nausea, Vomiting, Abdominal Pain, Diarrhea; No Constipation, No Melena, No Hematochezia, No Other Genitourinary: No Dysuria, No Frequency, No Incontinence, No Hematuria, No Retention, No Other Musculoskeletal: No other, No neck pain, No shoulder pain, No arm pain, No back pain, No hand pain, No leg pain, No foot pain Skin: No Rash, No Lesions, No Jaundice, No Bruising, No Other Objective Vitals Vital Signs Date Time Temp Pulse Resp B/P (MAP) Pulse Ox O2 Delivery O2 Flow Rate FiO2 07/04/24 13:00 98.2 77 20 118/61 (80) 96 98.2 07/04/24 08:00 Nasal Cannula* 2 28 Intake/Output Intake and Output 07/04/24 07:00 Intake Total 1450 ml Balance 1450 ml Intake Oral 400 ml IV Total 1050 ml # Voids 3 # Bowel Movements 1 Medications Current Medications Medications Dose Ordered Sig/Ellis Route Start Time Stop Time Status Last Admin Dose Admin Diagnostic Test (Pha) 1 strip ACHS 07/03/24 17:00 07/04/24 11:55 1 STRIP Insulin Human Regular ACHS SC 07/03/24 17:00 07/04/24 06:09 2 UNITS Dextrose 50 ml UD PRN IV 07/03/24 12:45 Ceftriaxone Sodium 50 ml @ 100 mls/hr DAILY@09 IV 07/04/24 09:00 07/04/24 08:49 100 MLS/HR Acetaminophen/ Hydrocodone Bitart 1 tab Q4HP PRN PO 07/03/24 12:45 Ondansetron HCl 4 mg Q4HP PRN IV 07/03/24 12:45 07/04/24 02:26 4 MG Acetaminophen 650 mg Q6HP PRN PO 07/03/24 12:45 Morphine Sulfate 2 mg Q4HPRN PRN IV 07/03/24 12:45 07/03/24 20:54 2 MG Pantoprazole Sodium 40 mg DAILY IV 07/04/24 10:00 07/04/24 08:49 40 MG Laboratory Results Laboratory Tests 07/04/24 05:17 Chemistry Test 07/04/24 05:17 Albumin 4.5 g/dL (3.2-4.8) Calcium Level 9.1 mg/dL (8.7-10.4) Total Protein 6.6 g/dL (5.7-8.2) LFT Test 07/04/24 05:17 Alanine Aminotransferase (ALT) 40 U/L (7-40) Alkaline Phosphatase 90 U/L (46-116) Aspartate Amino Transferase (AST) 29 U/L (13-40) Total Bilirubin 0.4 mg/dL (0.2-1.0) Urinalysis Test 07/03/24 08:12 Urine Color Yellow (Yellow) Urine Clarity Clear (Clear) Urine pH 5.5 (5.0-9.0) Urine Specific [place] 1.027 (1.001-1.035) Urine Protein Trace (Negative) H Urine Ketones Negative (Negative) Urine Blood Negative /uL (Negative) Urine Nitrite Negative (Negative) Urine Bilirubin Negative (Negative) Urine Urobilinogen Normal mg/dL (Negative) Urine Leukocyte Esterase Negative /uL (Negative) Urine RBC 1 /hpf (0 - 4) Urine Microscopic WBC 1 /HPF (0-5) Urine Squamous Epithelial Cells Few /hpf (<5) Urine Bacteria None seen /hpf (None Seen) Urine Mucus Few (None Seen) Urine Glucose 1+ mg/dL (Normal) H Microbiology Microbiology Date/Time Source Procedure Growth Status 07/03/24 12:53 Stool Stool Culture - Preliminary Resulted 07/03/24 12:53 Stool Shiga Toxin I & II Pending Resulted 07/03/24 12:53 Stool Clostridium difficile Toxin Assay - Final Resulted Assessment/Plan Assessment/Plan NelsonmarliArlene kent is a 68-year-old female with past medical history of hypertension, diabetes, and who presents to the ED with abdominal pain, nausea, vomiting, diarrhea, and headache x1 day. Patient denies any recent ingestion of spoiled food or recent sick contacts or recent illnesses. Patient reports the pain as pressure-like constant and 5/10. Patient denies any fevers, chills, lightheadedness, weakness, dizziness, chest pain, shortness of breath, or urinary symptoms. Intractable abdominal pain likely due to gastroenteritis Glucosuria Labs C diff stool sample UA Antiemetics Pain management NS [address] abdomen and pelvis EKG IV antibiotics-ceftriaxone A.m. labs Diabetes type 2 uncontrolled Hemoglobin A1c ISS and Accu-Cheks Chronic hypertension Continue home medication Plan discussed with: Patient Date of Service: Jul 04, 2024 Billing Provider: ALE RIOS DO Common Visit Codes: [id number] INP/OBS CARE(HIGH) ALE RIOS DO Jul 04, 2024 14:30
[2024-07-04] MEDS: HYDROcodone-ACET 5/325MG TAB PO PRN (16:12)
[2024-07-05] VITALS (7 sets, daily range): BP systolic 94–136; BP diastolic 61–79; PULSE 63–87; RESP 16–20; TEMP 98.2–99.9; O2SAT 96–100
--- NOTE | 2024-07-05 11:33 | DVHPN2 ---
Subjective The patient is seen and examined at bedside. She said she doing better today. Reviewed: Care Plan Changes from previous H/P or p: No Changes General: Per HPI Eyes: No Pain, No Vision change, No Conjunctivae inflammation, No Eyelid inflammation, No Other, No Redness ENT: No Ear pain, No Ear discharge, No Nose pain, No Nose discharge, No Nose congestion, No Mouth pain, No Mouth swelling, No Throat pain, No Throat swelling, No Other Cardiovascular: No Chest Pain, No Palpitations, No Orthopnea, No Paroxysmal Noc. Dyspnea, No Edema, No Lt Headedness, No Other Respiratory: No Cough, No Dry, No Shortness of breath, No SOB with excertion, No Wheezing, No Hemoptysis, No Pleuritic Pain, No Sputum, No Other Gastrointestinal: Nausea, Vomiting, Abdominal Pain, Diarrhea; No Constipation, No Melena, No Hematochezia, No Other Genitourinary: No Dysuria, No Frequency, No Incontinence, No Hematuria, No Retention, No Other Musculoskeletal: No other, No neck pain, No shoulder pain, No arm pain, No back pain, No hand pain, No leg pain, No foot pain Skin: No Rash, No Lesions, No Jaundice, No Bruising, No Other Objective Vitals Vital Signs Date Time Temp Pulse Resp B/P (MAP) Pulse Ox O2 Delivery O2 Flow Rate FiO2 07/05/24 08:50 99.9 87 17 132/79 (96) 97 99.9 07/04/24 20:00 Nasal Cannula* 1 24 Intake/Output Intake and Output 07/05/24 07:00 Intake Total 670 ml Balance 670 ml Intake Oral 620 ml IV Total 50 ml # Voids 8 # Bowel Movements 11 General Appearance: Alert, Cooperative, No acute distress HEENT: Atraumatic, PERRLA, EOMI, Mucous membr. moist/pink Neck: Supple Lungs: Clear to auscultation, Normal air movement Cardiovascular: Regular rate, Normal S1, Normal S2, No murmurs, Gallops, Rubs Neuro: Cranial nerves 3-12 NL Psych/Mental Status: Mental status NL Medications Current Medications Medications Dose Ordered Sig/Ellis Route Start Time Stop Time Status Last Admin Dose Admin Diagnostic Test (Pha) 1 strip ACHS 07/03/24 17:00 07/05/24 06:59 1 STRIP Insulin Human Regular ACHS SC 07/03/24 17:00 07/05/24 06:55 2 UNITS Dextrose 50 ml UD PRN IV 07/03/24 12:45 Ceftriaxone Sodium 50 ml @ 100 mls/hr DAILY@09 IV 07/04/24 09:00 07/05/24 10:21 100 MLS/HR Acetaminophen/ Hydrocodone Bitart 1 tab Q4HP PRN PO 07/03/24 12:45 07/05/24 10:32 1 TAB Ondansetron HCl 4 mg Q4HP PRN IV 07/03/24 12:45 07/05/24 02:33 4 MG Acetaminophen 650 mg Q6HP PRN PO 07/03/24 12:45 Morphine Sulfate 2 mg Q4HPRN PRN IV 07/03/24 12:45 07/04/24 22:13 2 MG Pantoprazole Sodium 40 mg DAILY IV 07/04/24 10:00 07/05/24 10:21 40 MG Laboratory Results Laboratory Tests 07/04/24 05:17 Urinalysis Test 07/03/24 08:12 Urine Color Yellow (Yellow) Urine Clarity Clear (Clear) Urine pH 5.5 (5.0-9.0) Urine Specific [place] 1.027 (1.001-1.035) Urine Protein Trace (Negative) H Urine Ketones Negative (Negative) Urine Blood Negative /uL (Negative) Urine Nitrite Negative (Negative) Urine Bilirubin Negative (Negative) Urine Urobilinogen Normal mg/dL (Negative) Urine Leukocyte Esterase Negative /uL (Negative) Urine RBC 1 /hpf (0 - 4) Urine Microscopic WBC 1 /HPF (0-5) Urine Squamous Epithelial Cells Few /hpf (<5) Urine Bacteria None seen /hpf (None Seen) Urine Mucus Few (None Seen) Urine Glucose 1+ mg/dL (Normal) H Microbiology Microbiology Date/Time Source Procedure Growth Status 07/03/24 12:53 Stool Stool Culture - Preliminary Resulted 07/03/24 12:53 Stool Shiga Toxin I & II - Final Resulted 07/03/24 12:53 Stool Clostridium difficile Toxin Assay - Final Resulted Labs and/or images reviewed: Labs reviewed by me Assessment/Plan Assessment/Plan Intractable abdominal pain likely due to gastroenteritis Glucosuria Diabetes type 2 uncontrolled Chronic hypertension Waiting for stool culture. Continuing sliding scale insulin. Continuing antibiotic. Continuing with hypertensive medication. Advance diet if tolerated Discharge planning Plan discussed with: Patient Date of Service: Jul 05, 2024 Billing Provider: KORINA GLEASON MD Common Visit Codes: [id number] INP/OBS CARE(HIGH) KORINA GLEASON MD Jul 05, 2024 11:33
[2024-07-05] MEDS: ENSURE CLEAR Mixed Berry 8oz Carton PO SCH (12:00)
--- NOTE | 2024-07-05 17:31 | DVHCONRES ---
Date Seen: Jul 05, 2024 Resident Creating Document: CINTHYA COLLADO RESIDENT History of Present Illness Arlene Sheridan is a 68-year-old female with past medical history of hypertension, diverticulitis in 2004 and 2008, diabetes, and who presents to the ED with abdominal pain, nausea, vomiting, diarrhea, and headache x1 day. Patient denies any recent ingestion of spoiled food or recent sick contacts or recent illnesses. Patient reports the pain as pressure-like constant and 5/10. Patient denies any fevers, chills, lightheadedness, weakness, dizziness, chest pain, shortness of breath, or urinary symptoms. Last colonoscopy was in 2009. GI consulted for nausea/vomiting/diarrhea and abdominal pain. Patient reports 5 episodes of watery yellowish bowel movements on 07/04. She says that she has not eaten anything out of the ordinary. Patient seen and examined at the bedside. Reports decreasing frequency of diarrhea. Started Bentyl 10 mg b.i.d. and Imodium p.r.n.. Stool WBC pending. C diff is negative. Normal bowel sounds, no tenderness. Family History: Diabetes mellitus G8 FATHER FH: kidney failure G8 MOTHER Hypertension G8 FATHER Allergies: Coded Allergies: NO KNOWN ALLERGIES (Unverified , 07/03/24) Home Meds Reported Medications Losartan Potassium (Losartan Potassium) 50 Mg Tab, 1 TAB PO DAILY 07/03/24 Discontinued Scripts Albuterol Sulfate (Albuterol Sulfate Hfa) 108 Mcg/Act Aer, 108 MCG IN TID, #120 AER Prov:DINORA COLE 05/01/24 Promethazine-Dm (Promethazine Dm 6.25-15 mg/5Ml) 1 Mikki Mikki, 5 ML PO TID, #180 ML Prov:DINORA COLE 05/01/24 Azithromycin (Azithromycin) 500 Mg Tab, 1 TAB PO DAILY, #5 TAB Prov:DINORA COLE 05/01/24 Current Medications Current Medications Medications (Trade) Dose Ordered Sig/Ellis Route PRN Reason Start Time Stop Time Status Last Admin Enteral Nutritional Formula (Ensure Clear) 240 ml TIDWM PO 07/05/24 12:00 07/05/24 12:00 Review of Systems Eyes: No Pain, No Vision change, No Conjunctivae inflammation, No Eyelid inflammation, No Other, No Redness ENT: No Ear pain, No Ear discharge, No Nose pain, No Nose discharge, No Nose congestion, No Mouth pain, No Mouth swelling, No Throat pain, No Throat swelling, No Other Cardiovascular: No Chest Pain, No Palpitations, No Orthopnea, No PND, No Edema, No Lt Headedness, No Other Respiratory: No Cough, No Dry, No Shortness of breath, No SOB with exertion, No Wheezing, No Hemoptysis, No Pleuritic Pain, No Sputum, No Other Gastrointestinal: Nausea, vomiting, abdominal pain, diarrhea. No constipation Genitourinary: No Dysuria, No Frequency, No Incontinence, No Hematuria, No Retention, No Other Musculoskeletal: No other, No neck pain, No shoulder pain, No arm pain, No back pain, No hand pain, No leg pain, No foot pain Skin: No Rash, No Lesions, No Jaundice, No Bruising, No Other Vital Signs Vital Signs Date Time Temp Pulse Resp B/P (MAP) Pulse Ox O2 Delivery O2 Flow Rate FiO2 07/05/24 12:48 98.6 78 18 134/76 (95) 100 98.6 07/05/24 08:10 Nasal Cannula* 1 24 Labs/Diagnostic Data Labs Test 07/05/24 16:49 07/04/24 05:17 07/03/24 08:12 07/03/24 07:43 Range/Units POC Glucose 135 H 70-106 mg/dl White Blood Count 7.2 # 4.4-10.8 10^3/uL Red Blood Count 5.58 H 4.0-5.20 10^6/uL Hemoglobin 12.6 12.2-16.2 g/dL Hematocrit 39.7 36.0-46.0 % Mean Corpuscular Volume 71.2 L 80.0-100.0 fL Mean Corpuscular Hemoglobin 22.6 L 28.0-32.0 pg Mean Corpuscular Hemoglobin Concent 31.8 L 32.0-36.0 g/dL Red Cell Distribution Width 16.7 H 11.8-14.3 % Platelet Count 224 140-450 10^3/uL Mean Platelet Volume 10.5 6.9-10.8 fL Neutrophils (%) (Auto) 60.9 37.0-80.0 % Lymphocytes (%) (Auto) 26.4 10.0-50.0 % Monocytes (%) (Auto) 12.3 H 0.0-12.0 % Eosinophils (%) (Auto) 0.2 0.0-7.0 % Basophils (%) (Auto) 0.2 0.0-2.0 % Neutrophils # (Auto) 4.4 1.6-8.6 10 ^3/uL Lymphocytes # (Auto) 1.9 0.4-5.4 10 ^3/uL Monocytes # (Auto) 0.9 0-1.3 10 ^3/uL Eosinophils # (Auto) 0 0-0.8 10 ^3/uL Basophils # (Auto) 0 0-0.2 10 ^3/uL Nucleated Red Blood Cells 0.0 % Sodium Level 139 136-145 mmol/L Potassium Level 3.5 3.5-5.1 mmol/L Chloride Level 107 98-107 mmol/L Carbon Dioxide Level 24 20-31 mmol/L Anion Gap 8 5-15 Blood Urea Nitrogen 18 9-23 mg/dL Creatinine 1.06 H 0.550-1.02 mg/dL Glomerular Filtration Rate Calc 57 >90 mL/min BUN/Creatinine Ratio 17.0 10.0-20.0 Serum Glucose 134 H 74-106 mg/dL Calcium Level 9.1 8.7-10.4 mg/dL Total Bilirubin 0.4 0.2-1.0 mg/dL Aspartate Amino Transferase (AST) 29 13-40 U/L Alanine Aminotransferase (ALT) 40 7-40 U/L Alkaline Phosphatase 90 46-116 U/L Total Protein 6.6 5.7-8.2 g/dL Albumin 4.5 3.2-4.8 g/dL Urine Color Yellow Yellow Urine Clarity Clear Clear Urine pH 5.5 5.0-9.0 Urine Specific [place] 1.027 1.001-1.035 Urine Protein Trace H Negative Urine Ketones Negative Negative Urine Blood Negative Negative /uL Urine Nitrite Negative Negative Urine Bilirubin Negative Negative Urine Urobilinogen Normal Negative mg/dL Urine Leukocyte Esterase Negative Negative /uL Urine RBC 1 0 - 4 /hpf Urine Microscopic WBC 1 0-5 /HPF Urine Squamous Epithelial Cells Few <5 /hpf Urine Bacteria None seen None Seen /hpf Urine Mucus Few None Seen Urine Glucose 1+ H Normal mg/dL Hemoglobin A1c 8.0 H <5.7 % A1C Microbiology Date/Time Source Procedure Growth Status 07/03/24 12:53 Stool Stool Culture - Final Complete 07/03/24 12:53 Stool Shiga Toxin I & II - Final Complete 07/03/24 12:53 Stool Clostridium difficile Toxin Assay - Final Complete Assessment Assessment: Intractable nausea and vomiting likely due to viral gastroenteritis Ruled out C diff History of diverticulitis Hepatic steatosis Plan: Patient reassured, continue observation Started Bentyl 10 mg b.i.d., Imodium p.r.n. Follow up with the stool WBC Last colonoscopy 2009 Outpatient colonoscopy advised. Plan discussed with Dr. Hurtado Plan discussed with: Patient CINTHYA COLLADO RESIDENT Jul 05, 2024 17:31
[2024-07-05] MEDS: DICYCLOMINE HCL 10 MG CAP PO SCH (18:07)
[2024-07-05] MEDS: LOPERAMIDE HCL 2 MG CAP/TAB PO PRN (18:07)
[2024-07-06 00:59] VITALS: BP 148/91; PULSE 58; RESP 17; TEMP 97.8; O2SAT 94
[2024-07-06 05:39] VITALS: BP 128/63; PULSE 70; RESP 20; TEMP 98.3; O2SAT 10
[2024-07-06 08:10] VITALS: PULSE 73; RESP 20; O2SAT 99
[2024-07-06 09:00] VITALS: BP 123/68; PULSE 73; RESP 20; TEMP 98.3; O2SAT 97
--- NOTE | 2024-07-06 10:16 | DVHPN2 ---
Progress Note Date Seen: Jul 06, 2024 Resident Creating Document: CINTHYA COLLADO RESIDENT Medical Necessity Reason Pt with a Central, PICC or Fol: No Subjective Review of Systems Arlene Sheridan is a 68-year-old female with past medical history of hypertension, diverticulitis in 2004 and 2008, diabetes, and who presents to the ED with abdominal pain, nausea, vomiting, diarrhea, and headache x1 day. Patient denies any recent ingestion of spoiled food or recent sick contacts or recent illnesses. Patient reports the pain as pressure-like constant and 5/10. Patient denies any fevers, chills, lightheadedness, weakness, dizziness, chest pain, shortness of breath, or urinary symptoms. Last colonoscopy was in 2009. GI consulted for nausea/vomiting/diarrhea and abdominal pain. Patient reports 5 episodes of watery yellowish bowel movements on 07/04. She says that she has not eaten anything out of the ordinary. Patient seen and examined at the bedside. Reports that the diarrhea has resolved. Started Bentyl 10 mg b.i.d. and Imodium p.r.n.. Objective vital signs Vital Sign Date Time Temp Pulse Resp B/P (MAP) Pulse Ox O2 Delivery O2 Flow Rate FiO2 07/06/24 05:39 98.3 70 20 128/63 (84) 10 98.3 07/05/24 20:00 Nasal Cannula* 1 24 Total Intake and Output 07/05/24 07/05/24 07/06/24 15:00 23:00 07:00 Intake Total 50 ml 525 ml 240 ml Balance 50 ml 525 ml 240 ml medications Current Medications Medications Dose Ordered Sig/Ellis Route Start Time Stop Time Status Last Admin Dose Admin Diagnostic Test (Pha) 1 strip ACHS 07/03/24 17:00 07/06/24 05:54 1 STRIP Insulin Human Regular ACHS SC 07/03/24 17:00 07/05/24 16:59 2 UNITS Dextrose 50 ml UD PRN IV 07/03/24 12:45 Ceftriaxone Sodium 50 ml @ 100 mls/hr DAILY@09 IV 07/04/24 09:00 07/06/24 09:41 100 MLS/HR Acetaminophen/ Hydrocodone Bitart 1 tab Q4HP PRN PO 07/03/24 12:45 07/05/24 16:59 1 TAB Ondansetron HCl 4 mg Q4HP PRN IV 07/03/24 12:45 07/05/24 02:33 4 MG Acetaminophen 650 mg Q6HP PRN PO 07/03/24 12:45 Morphine Sulfate 2 mg Q4HPRN PRN IV 07/03/24 12:45 07/05/24 23:32 2 MG Pantoprazole Sodium 40 mg DAILY IV 07/04/24 10:00 07/06/24 09:41 40 MG Enteral Nutritional Formula 240 ml TIDWM PO 07/05/24 12:00 07/06/24 08:00 240 ML Dicyclomine HCl 10 mg BID PO 07/05/24 17:30 07/06/24 09:41 10 MG Loperamide HCl 2 mg PRN PRN PO 07/05/24 17:30 07/05/24 18:07 2 MG Examination Patient lying in bed, in no acute distress General: Well-built, afebrile, palor, mucosae are moist Cardiovascular: Regular S1 and S2. No murmurs, gallops or rubs. No JVD elevation. No pedal edema Respiratory: Normal B/L air entry on room air. Clear lung sounds on auscultation Abdomen: Soft, nontender, nondistended, normoactive bowel sounds, no rebound tenderness, no organomegaly, no masses Genitourinary: Deferred MSK/skin: Mobilizes 4 limbs. Skin is dry and warm Neurological: No motor, no sensitive deficits, normal speech. Pupils are isocoric and reactive. Psych/Mental Status: A/Ox3 laboratory and microbiology Laboratory Tests 07/04/24 05:17 Test 07/04/24 05:17 Range/Units Serum Glucose 134 H 74-106 mg/dL Microbiology Date/Time Source Procedure Growth Status 07/03/24 12:53 Stool Stool Culture - Final Complete 07/03/24 12:53 Stool Shiga Toxin I & II - Final Complete 07/03/24 12:53 Stool Clostridium difficile Toxin Assay - Final Complete Labs and/or images reviewed: Labs reviewed by me, Image(s) reviewed by me Problem List/Assessment/Plan Problem List/Assessment/Plan Assessment: Intractable nausea and vomiting likely due to viral gastroenteritis, improving Ruled out C diff History of diverticulitis Hepatic steatosis Plan: Patient reassured, continue observation Started Bentyl 10 mg b.i.d., Imodium p.r.n. Last colonoscopy 2009 Advised outpatient GI follow up within 2-4 weeks, patient would also benefit from outpatient colonoscopy for screening purposes. Patient agreed with the plan. Stable to be discharged. Plan discussed with the patient in which all questions have been answered. Case discussed with Dr. Hurtado Plan discussed with: Patient My Orders My Orders Orders - CINTHYA COLLADO RESIDENT Procedure Category Date Status Time Dicyclomine Capsule PHA 07/05/24 In Process (Bentyl Capsule) 17:30 Loperamide Capsule PHA 07/05/24 In Process (Imodium Capsule) 17:30 Stool Wbc LAB 07/05/24 Logged 17:31 Communication Order ORDERS 07/06/24 Transmitted 10:11 Dietary Evaluation Review Recommendations by RD: Dietary education by RD Comments: 1. clear liquid with Ensure Clear as protein source while pt is having diarrhea. 2. Consider 2GNa CCHO-60 with a renal specific diet, restrict Protein to 50gm when pt can hold food down. Expected Outcomes/Goals: normal BMs, controlled DM, and no uremic symptoms CINTHYA COLLADO RESIDENT Jul 06, 2024 10:16
--- NOTE | 2024-07-06 11:20 | DVHPN2 ---
Subjective The patient is seen and examined at bedside. She said she doing better today. Reviewed: Care Plan General: Per HPI Eyes: No Pain, No Vision change, No Conjunctivae inflammation, No Eyelid inflammation, No Other, No Redness ENT: No Ear pain, No Ear discharge, No Nose pain, No Nose discharge, No Nose congestion, No Mouth pain, No Mouth swelling, No Throat pain, No Throat swelling, No Other Cardiovascular: No Chest Pain, No Palpitations, No Orthopnea, No Paroxysmal Noc. Dyspnea, No Edema, No Lt Headedness, No Other Respiratory: No Cough, No Dry, No Shortness of breath, No SOB with excertion, No Wheezing, No Hemoptysis, No Pleuritic Pain, No Sputum, No Other Gastrointestinal: Nausea, Vomiting, Abdominal Pain, Diarrhea; No Constipation, No Melena, No Hematochezia, No Other Genitourinary: No Dysuria, No Frequency, No Incontinence, No Hematuria, No Retention, No Other Musculoskeletal: No other, No neck pain, No shoulder pain, No arm pain, No back pain, No hand pain, No leg pain, No foot pain Skin: No Rash, No Lesions, No Jaundice, No Bruising, No Other Objective Vitals Vital Signs Date Time Temp Pulse Resp B/P (MAP) Pulse Ox O2 Delivery O2 Flow Rate FiO2 07/06/24 05:39 98.3 70 20 128/63 (84) 10 98.3 07/05/24 20:00 Nasal Cannula* 1 24 Intake/Output Intake and Output 07/06/24 07:00 Intake Total 815 ml Balance 815 ml Intake Oral 765 ml IV Total 50 ml # Voids 2 General Appearance: Alert, Cooperative, No acute distress HEENT: Atraumatic, PERRLA, EOMI, Mucous membr. moist/pink Neck: Supple Lungs: Clear to auscultation, Normal air movement Cardiovascular: Regular rate, Normal S1, Normal S2, No murmurs, Gallops, Rubs Neuro: Cranial nerves 3-12 NL Psych/Mental Status: Mental status NL Medications Current Medications Medications Dose Ordered Sig/Ellis Route Start Time Stop Time Status Last Admin Dose Admin Diagnostic Test (Pha) 1 strip ACHS 07/03/24 17:00 07/06/24 05:54 1 STRIP Insulin Human Regular ACHS SC 07/03/24 17:00 07/05/24 16:59 2 UNITS Dextrose 50 ml UD PRN IV 07/03/24 12:45 Ceftriaxone Sodium 50 ml @ 100 mls/hr DAILY@09 IV 07/04/24 09:00 07/06/24 09:41 100 MLS/HR Acetaminophen/ Hydrocodone Bitart 1 tab Q4HP PRN PO 07/03/24 12:45 07/05/24 16:59 1 TAB Ondansetron HCl 4 mg Q4HP PRN IV 07/03/24 12:45 07/05/24 02:33 4 MG Acetaminophen 650 mg Q6HP PRN PO 07/03/24 12:45 Morphine Sulfate 2 mg Q4HPRN PRN IV 07/03/24 12:45 07/05/24 23:32 2 MG Pantoprazole Sodium 40 mg DAILY IV 07/04/24 10:00 07/06/24 09:41 40 MG Enteral Nutritional Formula 240 ml TIDWM PO 07/05/24 12:00 07/06/24 08:00 240 ML Dicyclomine HCl 10 mg BID PO 07/05/24 17:30 07/06/24 09:41 10 MG Loperamide HCl 2 mg PRN PRN PO 07/05/24 17:30 07/05/24 18:07 2 MG Laboratory Results Laboratory Tests 07/04/24 05:17 Urinalysis Test 07/03/24 08:12 Urine Color Yellow (Yellow) Urine Clarity Clear (Clear) Urine pH 5.5 (5.0-9.0) Urine Specific [place] 1.027 (1.001-1.035) Urine Protein Trace (Negative) H Urine Ketones Negative (Negative) Urine Blood Negative /uL (Negative) Urine Nitrite Negative (Negative) Urine Bilirubin Negative (Negative) Urine Urobilinogen Normal mg/dL (Negative) Urine Leukocyte Esterase Negative /uL (Negative) Urine RBC 1 /hpf (0 - 4) Urine Microscopic WBC 1 /HPF (0-5) Urine Squamous Epithelial Cells Few /hpf (<5) Urine Bacteria None seen /hpf (None Seen) Urine Mucus Few (None Seen) Urine Glucose 1+ mg/dL (Normal) H Microbiology Microbiology Date/Time Source Procedure Growth Status 07/03/24 12:53 Stool Stool Culture - Final Complete 07/03/24 12:53 Stool Shiga Toxin I & II - Final Complete 07/03/24 12:53 Stool Clostridium difficile Toxin Assay - Final Complete Assessment/Plan Assessment/Plan Intractable abdominal pain likely due to gastroenteritis Glucosuria Diabetes type 2 uncontrolled Chronic hypertension Waiting for stool culture. Continuing sliding scale insulin. Continuing antibiotic. Continuing with hypertensive medication. Advance diet if tolerated Discharge planning My Orders Orders - KORINA GLEASON MD Procedure Category Date Status Time * Gi [facility] [employer] CONS 07/05/24 Transmitted 11:34 Nutritional PHA 07/05/24 In Process Supplements (Ensure 12:00 Cardiac DIET 07/06/24 Transmitted Diet-2gna,Lofat,Lochol Lunch KORINA GLEASON MD Jul 06, 2024 11:20
[2024-07-06] MEDS ORDERED: DICY10CA PO (12:04)
[2024-07-06] MEDS ORDERED: LOPE2CAP16 PO (12:04)
[2024-07-06] MEDS ORDERED: ZOFR4T PO (12:14)
--- NOTE | 2024-07-06 12:16 | DVHDS2 ---
Discharge Summary Date of Admission Jul 03, 2024 at 12:38 Date of Discharge: Jul 06, 2024 Admitting Diagnosis Intractable abdominal pain likely due to gastroenteritis Glucosuria Diabetes type 2 uncontrolled Chronic hypertension Labs/Diagnostic Data: Laboratory Results Test 07/06/24 11:40 07/04/24 05:17 07/03/24 08:12 07/03/24 07:43 POC Glucose 127 mg/dl (70-106) White Blood Count 7.2 10^3/uL (4.4-10.8) Red Blood Count 5.58 10^6/uL (4.0-5.20) Hemoglobin 12.6 g/dL (12.2-16.2) Hematocrit 39.7 % (36.0-46.0) Mean Corpuscular Volume 71.2 fL (80.0-100.0) Mean Corpuscular Hemoglobin 22.6 pg (28.0-32.0) Mean Corpuscular Hemoglobin Concent 31.8 g/dL (32.0-36.0) Red Cell Distribution Width 16.7 % (11.8-14.3) Platelet Count 224 10^3/uL (140-450) Mean Platelet Volume 10.5 fL (6.9-10.8) Neutrophils (%) (Auto) 60.9 % (37.0-80.0) Lymphocytes (%) (Auto) 26.4 % (10.0-50.0) Monocytes (%) (Auto) 12.3 % (0.0-12.0) Eosinophils (%) (Auto) 0.2 % (0.0-7.0) Basophils (%) (Auto) 0.2 % (0.0-2.0) Neutrophils # (Auto) 4.4 10 ^3/uL (1.6-8.6) Lymphocytes # (Auto) 1.9 10 ^3/uL (0.4-5.4) Monocytes # (Auto) 0.9 10 ^3/uL (0-1.3) Eosinophils # (Auto) 0 10 ^3/uL (0-0.8) Basophils # (Auto) 0 10 ^3/uL (0-0.2) Nucleated Red Blood Cells 0.0 % Sodium Level 139 mmol/L (136-145) Potassium Level 3.5 mmol/L (3.5-5.1) Chloride Level 107 mmol/L (98-107) Carbon Dioxide Level 24 mmol/L (20-31) Anion Gap 8 (5-15) Blood Urea Nitrogen 18 mg/dL (9-23) Creatinine 1.06 mg/dL (0.550-1.02) Glomerular Filtration Rate Calc 57 mL/min (>90) BUN/Creatinine Ratio 17.0 (10.0-20.0) Serum Glucose 134 mg/dL (74-106) Calcium Level 9.1 mg/dL (8.7-10.4) Total Bilirubin 0.4 mg/dL (0.2-1.0) Aspartate Amino Transferase (AST) 29 U/L (13-40) Alanine Aminotransferase (ALT) 40 U/L (7-40) Alkaline Phosphatase 90 U/L (46-116) Total Protein 6.6 g/dL (5.7-8.2) Albumin 4.5 g/dL (3.2-4.8) Urine Color Yellow (Yellow) Urine Clarity Clear (Clear) Urine pH 5.5 (5.0-9.0) Urine Specific [place] 1.027 (1.001-1.035) Urine Protein Trace (Negative) Urine Ketones Negative (Negative) Urine Blood Negative /uL (Negative) Urine Nitrite Negative (Negative) Urine Bilirubin Negative (Negative) Urine Urobilinogen Normal mg/dL (Negative) Urine Leukocyte Esterase Negative /uL (Negative) Urine RBC 1 /hpf (0 - 4) Urine Microscopic WBC 1 /HPF (0-5) Urine Squamous Epithelial Cells Few /hpf (<5) Urine Bacteria None seen /hpf (None Seen) Urine Mucus Few (None Seen) Urine Glucose 1+ mg/dL (Normal) Hemoglobin A1c 8.0 % A1C (<5.7) Other Laboratory Tests 07/04/24 05:17 Brief Hx & Hospital Course: This is a 68 years old female with past medical history of hypertension, diabetes, came to emergency department because severe abdominal pain, nausea, vomiting, diarrhea and headache for one day. The patient's CT scan of abdomen and pelvis done showed unremarkable scan except diverticulosis. GI specialist see the patient and recommend Bentyl p.r.n. for irritable bowel syndrome. The patient received Bentyl and feel better. She was Able to tolerate food without nausea or vomiting. I am going to discharge her home. Advised her per the follow up with primary care physician 1-2 weeks. Activity as tolerated. Diet low-salt , low carbs diet. Physical exam: HEENT: Normocephalic atraumatic pupils equal react to light and accommodation. Extraocular muscles intact, conjunctiva pink, oropharynx moist, no thrush, no exudate. Lymphatic: No lymphadenopathy Cardiovascular exam: S1, S2 was heard. No murmurs, rubs, gallops Lung: Clear on auscultation bilaterally, no wheeze, rale, rhonchi. GI: Abdominal soft, nondistended, nontenderness, positive bowel sounds. Extremity: No crepitus, cyanosis, edema. Pedal pulses present bilateral. Full range of motion. Skin: Normal turgor, no rash. Psych: Alert, oriented x3. Neurology: No focal deficits, cranial nerve II to XII grossly intact. This medical document was created using an electronic medical record system with [employer] direct computerized dictation system. Although this document has been carefully reviewed, there may still be some phonetic and typographical errors. These areas are purely typographical due to imperfections of the software programs, and do not reflect any compromise in the patient's medical care. Condition at Discharge: Stable Final Diagnosis/Problems List Intactable abdominal pain gastroenteritis Irritable bowel syndrome Glucosuria Diabetes type 2 uncontrolled Chronic hypertension Discharge Disposition: Home Discharge Instruct/Medications Diet: Cardiac 2g Na,low cholest Activity: No Restrictions, As Tolerated Follow Up/Referral: pcp 1-2 weeks Medications: see med list Discharge Statement: "Patient was advised to return to the ER or call 911 if any headaches, dizziness, shortness of breath, chest pain, abdominal pain, bleeding, fevers, or worsening of medical condition. Patient was counseled about treatment plan, medications, possible side effects, patientverbalized understanding. All questions were answered to the best of my ability. This discharge took greater then 30 minutes in planning, reviewing documentation, counseling the patient, and discussing with other team members." ASSESSMENT ASSESSMENT Assessment gastroenteritis Irritable bowel syndrome Date of Service: Jul 06, 2024 Billing Provider: KORINA GLEASON MD Common Visit Codes: 98176-NRU/OBS DISCH DAY >30min KORINA GLEASON MD Jul 06, 2024 12:16
[2024-07-06 13:00] VITALS: BP 148/73; PULSE 74; RESP 20; TEMP 98.6; O2SAT 98
[2024-07-06 14:40] VITALS: BP 123/68; PULSE 73; RESP 20; TEMP 37; O2SAT 97
== END 2024-07-06 15:35 | disposition home or self-care (01) | DRG 392 ==
LOC: EDBD 06:40 → ER 06:40 → EDUNIT# 06:40 → OVERFLOW 12:38 → CENTRAL 07-04 00:50
PROVIDERS: ATTEND Internal Medicine
DX: A08.4 Viral intestinal infection, unspecified (principal); E86.0 Dehydration; I10 Essential (primary) hypertension; K76.0 Fatty (change of) liver, not elsewhere classified; R81 Glycosuria; E11.65 Type 2 diabetes mellitus with hyperglycemia
CPT/HCPCS: 36415; 74176; 80053; 81001; 82962; 83036; 85025; 87045; 87427; 87493; 96361; 96365; 96372; 96375; 96376; 99291; G0378; J1815; J2405; J2470